=== PATIENT | male | born 1945 | race Caucasian/White ===

== ENCOUNTER 2016-11-01 09:31 | Outpatient (CLI) | payer OTHER ==
--- NOTE | 2016-11-01 12:10 | DIAGNOSTIC IMAGING REPORT ---
PROCEDURE: MR LUMBAR SPINE W/O CONTRAST INDICATION: BILAT LEG WEAKNESS,LUMBAR STENOSIS TECHNIQUE: Noncontrast T1, T2, and STIR sagittal images. T1 and T2 axial images. COMPARISON: None. FINDINGS: L1-2: Normal. L2-3: Normal. L3-4: Mild disc bulge which is slightly asymmetric on the right. L4-5: Mild spondylosis and spinal stenosis at the L4-5 with disc bulge and hypertrophy of the posterior elements and ligamentum flavum. L5-S1: Normal. IMPRESSION: 1. Mild spondylosis and spinal stenosis at L4-5.
--- NOTE | 2016-11-01 12:32 | DIAGNOSTIC IMAGING REPORT ---
PROCEDURE: MR CERVICAL SPINE W/O CONT INDICATION: Left-sided weakness. TECHNIQUE: Noncontrast T1, T2, and STIR sagittal images. T2 and gradient axial images. COMPARISON: None. FINDINGS: Normal alignment without fracture. Mild degenerative changes with disc space narrowing at C3-4 and C4-5 and spurring. Craniocervical junction is normal. Abnormal midline linear increased T2 signal of the cord posteriorly from C4-C6 without cord enlargement. Paraspinal soft tissues are normal. C2-3: Normal appearance. C3-4: Mild broad-based disc bulge/spur complex with mild left foraminal stenosis. No spinal stenosis. C4-5: Moderate right foraminal disc bulge/spur complex with moderate right foraminal stenosis. No spinal stenosis. C5-6: Small left posterior disc bulge/spur complex with mild left foraminal stenosis. No spinal stenosis. C6-7: Small disc bulge. No foraminal or spinal stenosis. C7-T1: Moderate right foraminal disc bulge/spur complex with moderate right foraminal stenosis. No spinal stenosis. IMPRESSION: 1. Mild degenerative changes with multilevel disc bulging 2. Abnormal midline posterior cervical cord signal from C4-C6 of uncertain etiology. Consider myelitis. Recommend cervical spine MRI with contrast. 3. Moderate right C4-5 foraminal disc bulge with moderate right foraminal stenosis 4. Moderate right C7-T1 foraminal disc bulge with moderate right foraminal stenosis
== END 2016-11-01 23:00 | disposition home or self-care (01) ==
LOC: MRI SRH 09:31
DX: M47.816 Spondylosis without myelopathy or radiculopathy, lumbar region (principal); M48.06 Spinal stenosis, lumbar region